=== PATIENT | male | born 1935 | race Caucasian/White ===

== ENCOUNTER 2018-11-15 16:57 | Emergency (ER) | payer MEDICARE ==
[~2018-11-15] VITALS: Ht 172.7 cm; Wt 45.4 kg
[2018-11-15] MEDS ORDERED: DIATRIZOATE MEGL/DIATRIZOA SOD 30 ML BTL PO ONE (18:32)
[2018-11-15 19:14] LABS: BASOPHILS % 0.7 % (0.0-1.0); EOSINOPHILS # (AUTO) 0.1 (0.0-0.4); EOSINOPHILS % 1.9 % (0.0-6.0); HEMATOCRIT 37.6 % (38.2-49.6); HEMOGLOBIN 11.7 g/dL (14.0-18.0); LYMPHOCYTES # (AUTO) 0.9 (1.0-3.2); LYMPHOCYTES % 15.6 % (18.0-39.1); MEAN CORPUSCULAR HEMOGLOBIN 29.4 pg (28-32); MEAN CORPUSCULAR HGB CONC 31.1 g/dL (31-35); MEAN CORPUSCULAR VOLUME 94.5 fL (81-99); MONOCYTES # (AUTO) 0.7 (0.2-0.8); MONOCYTES % 11.8 % (4.4-11.3); NEUTROPHILS # (AUTO) 3.9 (2.1-6.9); NEUTROPHILS % 69.1 % (38.7-80.0); PLATELET COUNT 138 x10e3/uL (140-360); RED BLOOD COUNT 3.98 x10e6/uL (4.3-5.7); RED CELL DISTRIBUTION WIDTH 14.6 % (11.7-14.4)
[2018-11-15 19:33] LABS: ALBUMIN 3.3 g/dL (3.5-5.0); ALBUMIN/GLOBULIN RATIO 0.8 (0.8-2.0); ANION GAP 15.3 mmol/L (8-16); CALCIUM 9.6 mg/dL (8.4-10.2); CREATININE, SERUM 1.85 mg/dL (0.72-1.25); MAGNESIUM 2.5 MG/DL (1.3-2.1); POTASSIUM 4.3 mmol/L (3.5-5.1)
--- NOTE | 2018-11-15 20:30 | Diagnostic Imaging Report ---
EXAM: CT Abdomen and Pelvis WITHOUT contrast INDICATION: Back pain. Not eating. Abdominal pain ^rule out obstruction ^[id number] ^2000 COMPARISON: None. TECHNIQUE: Abdomen and pelvis were scanned utilizing a multidetector helical scanner from the lung base to the pubic symphysis without administration of IV contrast. Absence of intravenous contrast decreases sensitivity for detection of focal lesions and vascular pathology. Coronal and sagittal reformations were obtained. Routine protocol was performed. IV CONTRAST: None ORAL CONTRAST: Water COMPLICATIONS: None RADIATION DOSE: Total DLP: 327 mGy*cm Estimated effective dose: (DLP x 0.015 x size factor) mSv CTDIvol has been reviewed. It is below the limits set by the Radiation Protocol Committee (RPC). Dose modulation, iterative reconstruction, and/or weight based adjustment of the mA/kV was utilized to reduce the radiation dose to as low as reasonably achievable. FINDINGS: LINES and TUBES: None. LOWER THORAX: Unremarkable HEPATOBILIARY: No focal hepatic lesions. No biliary ductal dilation. GALLBLADDER: No radio-opaque stones or sludge. No wall thickening. SPLEEN: No splenomegaly. PANCREAS: No focal masses or ductal dilatation. ADRENALS: No adrenal nodules KIDNEYS/URETERS: No hydronephrosis. No cystic or solid mass lesions. Punctate nonobstructing renal stones. Likely simple cysts in the kidneys. GI TRACT: No abnormal distention, wall thickening, or evidence of bowel obstruction. Contrast material in the bowel likely due to recent contrast administration. The appendix is not clearly seen however, no inflammatory changes are seen in the right lower quadrant of the abdomen. PELVIC ORGANS/BLADDER: Prominent prostate gland with coarse calcification. LYMPH NODES: No lymphadenopathy. VESSELS: Scattered vascular calcification. PERITONEUM / RETROPERITONEUM: No free air or fluid. BONES: Scattered degenerative change. SOFT TISSUES: Unremarkable. IMPRESSION: 1. Contrast material in the bowel likely due to recent contrast administration. The appendix is not clearly seen however, no inflammatory changes are seen in the right lower quadrant of the abdomen. No bowel obstruction. 2. Punctate nonobstructing renal stones. Likely simple cysts in the kidneys. Signed by: Dr. Mejia Verduzco M.D. on 11/15/2018 8:27 PM
[2018-11-15 21:02] LABS: BILIRUBIN,URINE NEGATIVE (NEGATIVE); CLARITY,URINE SL CLOUDY (CLEAR); COLOR,URINE YELLOW (YELLOW); KETONES,URINE NEGATIVE (NEGATIVE); LEUKOCYTE ESTERASE ,URINE NEGATIVE (NEGATIVE); NITRITE,URINE NEGATIVE (NEGATIVE); PROTEIN,URINE DIPSTICK 1+ (NEGATIVE); URINE UROBILINOGEN 1 mg/dL (0.2 - 1)
[2018-11-15 21:30] LABS: BACTERIA,URINE MODERATE /HPF; EPITHELIAL CELLS,URINE FEW /LPF; WBC,URINE (MAN) 0-5 /HPF (0-5)
[2018-11-15 21:31] LABS: AMORPHOUS SEDIMENT,URINE FEW (FEW)
== END 2018-11-15 22:29 | disposition home or self-care (01) ==
LOC: ER 16:57
DX: E87.6 Hypokalemia (principal); K52.9 Noninfective gastroenteritis and colitis, unspecified; R74.0 Nonspecific elevation of levels of transaminase and lactic acid dehydrogenase [LDH]; G20 Parkinson's disease; F02.80 Dementia in other diseases classified elsewhere, unspecified severity, without behavioral disturbance, psychotic disturbance, mood disturbance, and anxiety
CPT/HCPCS: 36415; 74176; 80053; 81001; 83690; 83735; 85025; 87086; 99284